=== PATIENT | male | born 1970 | race Caucasian/White ===

== ENCOUNTER 2023-04-26 07:46 | Outpatient (CLI) | payer BC, SELFPAY | END 2023-04-26 07:47 | disposition home or self-care (01) | LOC: NFLDREF 04-27 05:48 | PROVIDERS: PCP Family Medicine; Referring Provider Family Medicine; Visit Provider Family Medicine | DX: Z00.00 Encounter for general adult medical examination without abnormal findings (principal); I10 Essential (primary) hypertension; E66.01 Morbid (severe) obesity due to excess calories; E78.1 Pure hyperglyceridemia; F32.A Depression, unspecified | CPT/HCPCS: 80053; 80061; 82043; 82570 ==

== ENCOUNTER 2023-05-02 09:29 | Outpatient (CLI) | payer BC, SELFPAY ==
--- NOTE | 2023-05-02 10:03 | W.ANESCHARGE ---
Anesthesia Charges Start Date/Time Anesthesia Start Date: 05/02/23 Stop Date/Time Anesthesia Stop Date: 05/02/23
--- NOTE | 2023-05-02 11:53 | W.ANESCHARGE ---
Anesthesia Charges Start Date/Time Anesthesia Start Date: 05/02/23 Anesthesia Start Time: 10:57 Stop Date/Time Anesthesia Stop Date: 05/02/23 Anesthesia Stop Time: 11:48
--- NOTE | 2023-05-02 11:57 | W.ANESCHARGE ---
Anesthesia Charges Start Date/Time Anesthesia Start Date: 05/02/23 Anesthesia Start Time: 10:57 Stop Date/Time Anesthesia Stop Date: 05/02/23 Anesthesia Stop Time: 11:48
== END 2023-05-02 09:30 | disposition home or self-care (01) ==
LOC: OP CLINIC 09:30
PROVIDERS: PCP Family Medicine; Visit Provider Surgery
DX: Z12.11 Encounter for screening for malignant neoplasm of colon (principal); K63.5 Polyp of colon
CPT/HCPCS: 00811; 45385; 88305; J2704